=== PATIENT | female | born 1975 | race Caucasian/White ===

== ENCOUNTER 2017-03-23 15:23 | Emergency (ER) | payer MEDICAID ==
[~2017-03-23] VITALS: Ht 160 cm; Wt 70.8 kg
[~2017-03-23 15:23] MED LIST: [UNRECOGNIZED DRUG - CODE] IM
[2017-03-23 15:37] VITALS: BP 114/66
--- NOTE | 2017-03-23 20:07 | NUR ---
TO ER BED 8
--- NOTE | 2017-03-23 20:08 | NUR ---
PT PRESENTS TO ER W/C/O LEFT FLANK PAIN AND PAINFUL URINATION X 3 DAYS. DENIES N/V/D; SKIN IS PINK/WARM/DRY; AAOX4 WITH EVEN AND STEADY GAIT; LUNGS CLEAR BL; HR EVEN AND REGULAR; PT DENIES ANY FEVER, CP, SOB, OR COUGH AT THIS TIME; PATIENT STATES PAIN OF 8/10 AT THIS TIME; VSS; PATIENT POSITIONED FOR COMFORT; HOB ELEVATED; BEDRAILS UP X2; BED DOWN. ER MD MADE AWARE OF PT STATUS.
[2017-03-23] MEDS ORDERED: KETOROLAC 30 MG/ML VIAL IM ONE (20:20)
[2017-03-23 20:57] LABS: BILIRUBIN,URINE NEGATIVE (NEGATIVE); BLOOD, URINE NEGATIVE (NEGATIVE); COLOR,URINE YELLOW (YELLOW); LEUKOCYTE ESTERASE ,URINE NEGATIVE (NEGATIVE); NITRITE, URINE NEGATIVE (NEGATIVE); PROTEIN,URINE NEGATIVE (NEGATIVE); UGLUCOSE NEGATIVE (NEGATIVE); UROBILINOGEN,URINE 0.2 EU/dL (0.2 - 1)
[2017-03-23 21:02] LABS: APPEARANCE,URINE CLEAR (CLEAR)
--- NOTE | 2017-03-23 21:02 | NUR ---
PT RESTING IN BED. NO SOB NOTED AT THIS TIME. FAMILY AT BEDSIDE.
[2017-03-23 22:21] LABS: ANION GAP 11.9 (8-16); CALCIUM 8.8 mg/dL (8.5-10.1); CARBON DIOXIDE 27.3 mmol/L (21-32); CREATININE 0.8 mg/dL (0.6-1.3); POTASSIUM 4.2 mmol/L (3.5-5.1)
[2017-03-23 22:27] LABS: ALBUMIN 3.9 g/dL (3.4-5.0); TOTAL BILIRUBIN 0.4 mg/dL (0.0-1.0); TOTAL PROTEIN, SERUM 7.6 g/dL (6.4-8.2)
--- NOTE | 2017-03-23 23:02 | NUR ---
PT RESTING IN BED. NO SOB NOTED AT THIS TIME. FAMILY AT BESIDE. WILL CONTINUE TO MONITOR.
[2017-03-24 00:15] VITALS: BP 119/66
--- NOTE | 2017-03-24 00:16 | NUR ---
Patient discharged with v/s stable. Written and verbal after care instructions given and explained. Patient alert, oriented and verbalized understanding of instructions. Ambulatory with steady gait. All questions addressed prior to discharge. ID band removed. Patient advised to follow up with PMD. Rx of TYLENOL WITH CODEINE, PHENAZOPYRIDINE HYDROCHLORIDE given. Patient educated on indication of medication including possible reaction and side effects. Opportunity to ask questions provided and answered.
== END 2017-03-24 00:15 | disposition home or self-care (01) ==
LOC: MED 15:23
DX: R10.12 Left upper quadrant pain (principal); K21.9 Gastro-esophageal reflux disease without esophagitis
CPT/HCPCS: 36415; 74176; 80053; 81003; 81025; 83690; 84484; 93005; 96372; 99285; J1885

== ENCOUNTER 2017-09-01 19:23 | Emergency (ER) | payer MEDICAID ==
[~2017-09-01] VITALS: Ht 162.6 cm; Wt 71.7 kg
[2017-09-01 20:20] VITALS: BP 132/75
--- NOTE | 2017-09-01 20:24 | NUR ---
PT PROVIDED URINE CUP
--- NOTE | 2017-09-01 20:24 | NUR ---
PT TO ER LOBBY AWAITING MSE; VSS.
--- NOTE | 2017-09-01 23:20 | NUR ---
Patient ambulated to bed 3. RN evaluating patient at bedside.
--- NOTE | 2017-09-01 23:56 | NUR ---
Dr. Jauregui evaluating patient at bedside.
--- NOTE | 2017-09-02 | NUR ---
Note undone in EDM - 09/02/17 at 0102 by MEDWL 41y/f presents w/ pain on urination and headache. pmh dm, htn, cirrohsis of liver. nka. pt states she has pain on urination x3 days, pt bl lower legs are darkened skin, pt has trouble ambulating. pt has had cough x3 days. bl lower lungs clear throghout. rr even and unlabored. vss, pt laying in bed, comfort needs met.
[2017-09-02] MEDS ORDERED: MECLIZINE 25 MG TAB PO ONE (00:05)
[2017-09-02] MEDS ORDERED: NACL 0.9% 1,000 ML IV ONE (00:05)
--- NOTE | 2017-09-02 00:30 | NUR ---
41Y/F PRESENTS TO ER C/O DIZZINESS, N/V/D. NO PMH, NKA. PER PT SHE HAS HAD SYMPTOMS OF DIZZINESS X3 DAYS AND N/V/D X1 DAY. ABD IS SOFT, ROUND, NON TENDER, ACTIVE BS X4. PT DENIES BLOOD IN VOMIT OR DIARRHEA. PT IS AA&OX4. PT DENIES TRAUMA OR FALLING. PT LAYING IN BED, COMFORT NEEDS MET, WILL CONTINUE TO MONITOR .
[2017-09-02 01:02] LABS: BASOPHILS # (AUTO) 0.3 K/uL (0.00-0.22); BASOPHILS % (AUTO) 4.5 % (0.0-2.0); EOSINOPHILS # (AUTO) 0.1 K/uL (0-0.4); EOSINOPHILS % (AUTO) 1.1 % (0.0-4.0); HEMATOCRIT 41.7 % (36-48); HEMOGLOBIN 13.8 g/dL (12.0-16.0); LYMPHOCYTES # (AUTO) 1.3 K/uL (2.5-16.5); LYMPHOCYTES % (AUTO) 17.9 % (20.5-51.1); MEAN CORPUSCULAR HEMOGLOBIN 31 pg (27-31); MEAN CORPUSCULAR HGB CONC 33 g/dL (33-37); MEAN CORPUSCULAR VOLUME 93 fL (80-94); MONOCYTES # (AUTO) 0.7 K/uL (0.8-1.0); MONOCYTES % (AUTO) 9.8 % (1.7-9.3); NEUTROPHILS # (AUTO) 4.9 K/uL (1.8-7.7); NEUTROPHILS % (AUTO) 66.7 % (42.2-75.2); PLATELET COUNT (AUTO) 267 K/uL (140-450); RED BLOOD CELL COUNT(AUTO) 4.49 MIL/uL (4.20-5.40); RED CELL DISTRIBUTION WIDTH 12.2 % (11.6-13.7); WHITE BLOOD COUNT (AUTO) 7.3 K/uL (4.8-10.8)
[2017-09-02 01:04] LABS: APPEARANCE,URINE SL CLOUDY (CLEAR); BILIRUBIN,URINE NEGATIVE (NEGATIVE); BLOOD, URINE NEGATIVE (NEGATIVE); COLOR,URINE YELLOW (YELLOW); LEUKOCYTE ESTERASE ,URINE NEGATIVE (NEGATIVE); NITRITE, URINE NEGATIVE (NEGATIVE); UGLUCOSE NEGATIVE (NEGATIVE)
[2017-09-02 01:09] LABS: ANION GAP 10.8 (8-16); CARBON DIOXIDE 27.5 mmol/L (21-32); POTASSIUM 4.3 mmol/L (3.5-5.1)
[2017-09-02 01:15] LABS: ALBUMIN 3.9 g/dL (3.4-5.0); TOTAL BILIRUBIN 0.3 mg/dL (0.0-1.0)
[2017-09-02 01:17] LABS: RBC,URINE 0-5 (RARE) /HPF (0-5); WBC,URINE 0-5 (RARE) /HPF (0-5)
--- NOTE | 2017-09-02 02:00 | NUR ---
pt in bed resting, states feels "better" and "less" dizzy.
--- NOTE | 2017-09-02 03:58 | NUR ---
Patient discharged with v/s stable. Written and verbal after care instructions given and explained. Patient verbalized understanding. Ambulatory with steady gait. All questions addressed prior to discharge. Advised to follow up with PMD.
[2017-09-02 03:59] VITALS: BP 130/71
== END 2017-09-02 03:52 | disposition home or self-care (01) ==
LOC: MED 19:23
DX: B34.9 Viral infection, unspecified (principal); K21.9 Gastro-esophageal reflux disease without esophagitis
CPT/HCPCS: 36415; 80053; 81001; 81025; 82150; 83690; 85025; 96360; 96361; 99285; J7030; J8597